=== PATIENT | female | born 1990 | race Caucasian/White ===

== ENCOUNTER 2016-08-17 11:50 | Emergency (ER) | payer OTHER ==
[~2016-08-17] VITALS: Ht 167.6 cm; Wt 102.4 kg
[~2016-08-17 11:50] MED LIST: ENDOCET 5-3251 EACH PO; ESCITALOPRAM OX20 MG PO; FUROSEMIDE20 MG PO; HUMALOG100 UNIT/2 SC; IBUPROFEN800 MG PO; METFORMIN HCL500 M1 PO; PRENATAL TABLE1 EAC3 PO
[2016-08-17] MEDS ORDERED: PERCOCET 5/31 TABLET PO (13:43)
[2016-08-17 14:35] VITALS: BP 118/74
== END 2016-08-17 14:36 | disposition home or self-care (01) ==
LOC: EME 11:50
DX: S93.402A Sprain of unspecified ligament of left ankle, initial encounter (principal); W10.9XXA Fall (on) (from) unspecified stairs and steps, initial encounter; Y93.E2 Activity, laundry; E10.9 Type 1 diabetes mellitus without complications; Z79.4 Long term (current) use of insulin; F32.9 Major depressive disorder, single episode, unspecified; F41.9 Anxiety disorder, unspecified; Z88.0 Allergy status to penicillin
CPT/HCPCS: 73610; 73630; 99281; 99284; J2270; J2405

== ENCOUNTER 2017-08-30 04:32 | Emergency (ER) | payer OTHER ==
[~2017-08-30] VITALS: Ht 167.6 cm; Wt 106.4 kg
[~2017-08-30 04:32] MED LIST changes: +PERCOCET 5/31 TABLET PO
[2017-08-30 05:10] LABS: APPEARANCE CLEAR ((CLEAR)); BILIRUBIN NEGATIVE; BLOOD NEGATIVE; COLOR YELLOW ((YELLOW)); GLUCOSE (STRIP) 50; KETONES NEGATIVE; LEUKOCYTES NEGATIVE; NITRITE NEGATIVE; PROTEIN (STRIP) 30; SPECIFIC GRAVITY 1.025 (1.000-1.030); UCUL ADDED? NO; UROBILINOGEN 0.2 MG/DL (0.2-1.0)
[2017-08-30 05:18] LABS: HEMATOCRIT 40.4 % (36.0-46.0); HEMOGLOBIN 13.8 G/DL (11.9-15.5); MCH 29.8 PG (29.0-34.0); MCHC 34.2 G/DL (30.0-36.0); MCV 87.3 FL (83-99); PLATELET COUNT 230 K/uL (156-360); RBC DIS.WIDTH-CV 12.7 % (11.8-14.6); RBC DIS.WIDTH-SD 40.4 % (39-53); RED BLOOD COUNT 4.63 M/uL (3.80-5.20); WHITE BLOOD COUNT 13.2 K/uL (4.1-10.2)
[2017-08-30 05:36] LABS: ALBUMIN 4.3 g/dL (3.2-4.8); CHLORIDE 105 mEq/L (99-109); POTASSIUM 4.9 mEq/L (3.7-5.4); SODIUM 139 mEq/L (136-147)
[2017-08-30 05:39] LABS: GLUCOSE 215 mg/dL (70-99); TOTAL PROTEIN 7.2 g/dL (6.4-8.3)
[2017-08-30 05:41] LABS: TOTAL BILIRUBIN 0.2 mg/dL (0.0-1.0)
[2017-08-30 05:42] LABS: ALKALINE PHOSPHATASE 104 IU/L (3-129); CREATININE 0.8 mg/dL (0.6-1.3); GFR ESTIMATE (CALCULATED) > 59 mL/min/
[2017-08-30 05:43] LABS: UREA NITROGEN (BUN) 11 mg/dL (9-23)
[2017-08-30 05:44] LABS: AST (GOT) 17 IU/L (2-34)
[2017-08-30 05:45] LABS: ALT (GPT) 16 IU/L (3-49)
[2017-08-30 05:46] LABS: LIPASE 18 U/L (1.0-51.0)
[2017-08-30 05:53] LABS: QUANTITATIVE HCG < 4.0 MIU/ML
[2017-08-30 06:38] VITALS: BP 139/76
== END 2017-08-30 06:40 | disposition home or self-care (01) ==
LOC: EME → EDBD 04:32 → EME 06:40
PROVIDERS: Emergency Medicine
DX: E11.649 Type 2 diabetes mellitus with hypoglycemia without coma (principal); Z79.4 Long term (current) use of insulin
CPT/HCPCS: 80053; 81003; 82948; 83690; 84702; 85027; 99281; 99284; J7030